=== PATIENT | female | born 1995 | race Caucasian/White ===

== ENCOUNTER 2017-10-07 15:27 | Emergency (ER) | payer OTHER ==
[2017-10-07 15:42] VITALS: BP 140/70
--- NOTE | 2017-10-07 16:00 | UC ---
Complaint Female HPI - HPI Summary HPI Summary: 22 y/o WF presents with lower abdominal cramping and increased bleeding when she gets her periods for the last 3 months. She tells me that 3 months ago she started having spotting intermittently outside of her normal menstrual cycle. [facility] - per pt. The next month during her period she had moderate lower abdominal cramping and a heavy flow for 5-6 days. [facility] "[facility] her [facility] STDs", which were all negative per pt. This month's period she has had even worse lower abdominal cramping and a heavy flow for the last 3 days. She is not on any type of control. She is sexually active and tries to use condoms when she "remembers". Denies fever, chills, dizziness, headaches , SOB, chest pain, recent illness, abdominal pain other than mentioned above, n/ v/d/c, dyspareunia, dysuria, or flank/LBP. She has an appointment to see OBGYN for the first time on 10/28/17 Age of menarche: age 14 Cycle: 3 days of light to moderate bleeding with mild cramping LMP: Currently - History Of Current Complaint Chief Complaint: UCGI Stated Complaint: VAGINAL PAIN, AND IRREGULAR PERIODS Hx Obtained From: Patient Hx Last Menstrual Period: 09/10/17 ?: No Onset/Duration: Gradual Onset Timing: Intermittent Severity Initially: Moderate Severity Currently: Moderate Pain Intensity: 5 Pain Scale Used: 0-10 Numeric Character: Cramping - Allergies/Home Medications Allergies/Adverse Reactions: Allergies Allergy/AdvReac Type Severity Reaction Status Date / Time No Known Allergies Allergy Verified 10/07/17 15:42 Home Medications: Home Medications Ibuprofen 200 MG 400 mg PO Q6HR PRN 10/07/17 [History Confirmed 10/07/17] PMH/Surg Hx/FS Hx/Imm Hx Previously Healthy: Yes - Surgical History Surgical History: Yes Surgery Procedure, Year, and Place: tonsilectomy - Social History Lives: With Family Alcohol Use: None Substance Use Type: None Smoking Status (MU): Never Smoked Tobacco - Immunization History Most Recent Influenza Vaccination: 2015 Review of Systems Constitutional: Negative Skin: Negative Respiratory: Negative Cardiovascular: Negative Gastrointestinal: Abdominal Pain - Suprapubic Genitourinary: Negative Neurovascular: Negative All Other Systems Reviewed And Are Negative: Yes Physical Exam Triage Information Reviewed: Yes Appearance: Well-Appearing, No Pain Distress, Obese Vital Signs: Initial Vital Signs Temp 98.2 F 10/07/17 15:34 Pulse 86 10/07/17 15:34 Resp 16 10/07/17 15:34 BP 140/70 10/07/17 15:34 Pulse Ox 100 10/07/17 15:34 Vital Signs Reviewed: Yes Eyes: Positive: Conjunctiva Clear, Other: - No conjunctiva pallor.. Negative: Conjunctiva Inflamed, Discharge Neck: Positive: Supple, Nontender, No Lymphadenopathy Respiratory: Positive: Chest non-tender, Lungs clear, Normal breath sounds, No respiratory distress, No accessory muscle use Cardiovascular: Positive: RRR, No Murmur, Pulses Normal Abdomen Description: Positive: No Organomegaly, Soft, Other: - TTP over suprapubic region. Negative: CVA Tenderness (R), CVA Tenderness (L), Distended , Guarding, McBurney's Point Tenderness Bowel Sounds: Positive: Present Neurological: Positive: Alert Psychological: Positive: Age Appropriate Behavior Skin: Positive: Other - No erythema, rashes, ecchymosis, or significant lesions on the abdomen. - Additional Comments Pt refused a vaginal/pelvic exam at this visit. Complaint Female Dx - Course Course Of Treatment: Pt refused a vaginal/pelvic exam at this visit. Her urine was negative. Her U/A was positive for blood without signs of infection. She is very set on needing an ultrasound today to "see what is going on". I advised her that we do not have ultrasound capabilities here at this time and that she would need some labwork as well. I discussed with her a few options that seemed most reasonable at this time. 1) If she wanted an ultrasound done tonight, her best option would be to go to the ER. 2) She can call her PCP and see if they can see her/order an ultrasound 3) She can wait and see OBGYN on 10/28. Pt elected to go to the ER by private car. - Differential Dx/Diagnosis Differential Diagnosis/HQI/PQRI: Endometriosis, Pelvic Inflammatory Disease, , Sexually Transmitted Disease, Other - Fibroid. PCOS. Provider Diagnoses: Menorrhagia. dysmenorrhea Discharge - Discharge Plan Condition: Stable Disposition: OTHER Discharge Disposition Comment: To [facility] by private vehicle Referrals: No Primary Care Phys,NOPCP [Primary Care Provider] - Additional Instructions: If you develop a fever, shortness of breath, chest pain, new or worsening symptoms - please call your PCP or go to the ED.
== END 2017-10-07 16:40 ==
LOC: UCEAST 15:27
DX: N92.0 Excessive and frequent menstruation with regular cycle (principal); N94.6 Dysmenorrhea, unspecified
CPT/HCPCS: 81003; 81025; 99201; G0463